=== PATIENT | female | born 1970 | race Caucasian/White ===

== ENCOUNTER → 2020-09-28 | Day surgery (SDC) | payer OTHER ==
[~2020-09-28] MED LIST: LIDOCAINE 1%/EPI 1:100,000 20 ML VIAL. INJ ONE; LIDOCAINE 1%/EPI 1:100,000 20 ML VIAL. ONE
--- NOTE | 2020-09-28 12:50 | PDOC4 ---
Operative Note Operative Note Date: September 28, 2020 at 1248 Preoperative diagnosis: Left axillary mass Postoperative diagnosis: Same Procedure: Excision of left axillary mass Surgeon: Justus Specimen: Left axillary mass Dictation: Patient is 50-year-old female who is had 4 episodes of drainage from a left axillary mass. Procedure of excision of mass was explained to the patient detail was benefits were also discussed including bleeding infection alternatives to this procedure also discussed with patient who seemed to understand and gave a verbal written consent to have the procedure performed. Patient was taken to the minors room placed in the supine position her left axilla was prepped and draped usual sterile fashion with ChloraPrep. Area around the mass was injected with 1% lidocaine with epinephrine once this is anesthetized an elliptical incision was made with 15 blade scalpel excising the mass sharply and sent it for pathology. Mass size 0.5 cm incision size 1 cm. Incision was closed with a single layer 4-0 subcuticular Monocryl Mastisol Steri-Strips and island dressing were applied. Patient tolerated procedure well was discharged home in stable condition all sponge instrument needle counts listed as correct estimated blood loss less than 5 mL YANETH SAMANIEGO MD September 28, 2020 12:50
--- NOTE | 2020-09-28 12:51 | DISCH ---
DISCHARGE INSTRUCTIONS Condition on Discharge Condition on Discharge: Stable Activity After Discharge Activity Instructions for Disc: Resume previous activity Diet after Discharge Diet after Discharge: Regular Wound Incision Care Other wound/incision instructi: Keely shower in 24 hours Contacting the DRKenneth after DC Call your doctor for: If your condition worsens Follow-Up Follow up with: Dr. Samaniego in 2 weeks YANETH SAMANIEGO MD September 28, 2020 12:51
--- NOTE | 2020-10-03 08:22 | PATHOLOGY ---
[facility] Accession Number: [id number] . 01 Material submitted: . chest - LEFT AXILLARY MASS. Modifiers: left, AXILLARY . 01 Clinical history: . EXCISION OF LEFT AXILLARY MASS . 02 Diagnosis: Skin and subcutaneous tissue, left axillary mass, excision: - Keratin distended follicle and portion of follicular cyst with associated scarring, chronic inflammation, and foreign body granulomatous reaction. . ([facility]:mm; 09/30/2020) [facility] 10/03/2020 0735 Local . 02 Comment: There is no evidence of malignancy. . (M:mml; 09/30/2020) . 02 Electronically signed: . Cristobal Houston MD, Pathologist NPI- [id number] . 01 Gross description: . Received in formalin labeled "Anum, Donna, left axillary mass" is an unoriented ellipse of skin measuring 1.0 x 0.5 x 0.5 cm. The deep surface displays a possible yellow-telles cyst measuring 0.4 cm in greatest dimension. The margin is inked and the specimen is sectioned into 5 pieces. The specimen is submitted entirely in A1-A2, with the tips in the last cassette. ([facility] [place]; 09/29/2020) [facility] 09/29/2020 1145 Local . 02 Pathologist provided ICD-10: L72.9 . 02 CPT . 244141 Specimen Comment: A courtesy copy of this report has been sent to [phone], [phone] Specimen Comment: [id number] Specimen Comment: Report sent to / DR STINSON Performed at: [address], [place], [place] [id number] MD Ronni Agustin MD Phone: [phone] Performed at: 02 [facility] [address] [place], [place] [id number] MD Cristobal Houston MD Phone: [phone]
== END | disposition home or self-care (01) ==
LOC: SURG 11:52
PROVIDERS: ATTEND Surgery
DX: L72.9 Follicular cyst of the skin and subcutaneous tissue, unspecified (principal); R22.31 Localized swelling, mass and lump, right upper limb; J44.9 Chronic obstructive pulmonary disease, unspecified; Z87.891 Personal history of nicotine dependence; Z72.89 Other problems related to lifestyle; Z79.899 Other long term (current) drug therapy; Z98.890 Other specified postprocedural states; Z20.822 Contact with and (suspected) exposure to COVID-19
CPT/HCPCS: 11402; 87426; 88304; J3490